=== PATIENT | female | born 1980 | race Caucasian/White ===

== ENCOUNTER 2017-10-11 23:08 | Emergency (ER) | payer OTHER ==
[~2017-10-11] VITALS: Ht 170.2 cm; Wt 53.4 kg
[~2017-10-11 23:08] MED LIST: ASPIRIN81 M2 PO; IBUPROFEN800 MG PO; IRON325 M1 PO; MAKENA250 MG/1 M IM; NAPROSYN500 MG PO; PRENATAL TABLE1 EAC3 PO; SPRINTEC1 EACH PO; TYLENOL EXTRA500 MG PO; VITAMIN D-3 401 EACH PO
[2017-10-12] MEDS ORDERED: MEDROL DOSEPAK4 MG PO (00:09)
[2017-10-12] MEDS ORDERED: ZITHROMAX Z-PA250 MG PO (00:09)
[2017-10-12] MEDS ORDERED: ULTRAM50 MG PO (00:09)
[2017-10-12 00:13] VITALS: BP 118/71
== END 2017-10-12 00:14 | disposition home or self-care (01) ==
LOC: EME 23:08 → RME 23:08
DX: R07.81 Pleurodynia (principal); J06.9 Acute upper respiratory infection, unspecified; J45.909 Unspecified asthma, uncomplicated; Z86.79 Personal history of other diseases of the circulatory system
CPT/HCPCS: 71046; 99281; 99283; J7512

== ENCOUNTER 2017-12-22 16:55 | Emergency (ER) | payer OTHER ==
[~2017-12-22] VITALS: Ht 170.2 cm; Wt 52.8 kg
[~2017-12-22 16:55] MED LIST changes: +MEDROL DOSEPAK4 MG PO; +ULTRAM50 MG PO; +ZITHROMAX Z-PA250 MG PO
[2017-12-22] MEDS ORDERED: ULTRAM50 MG PO (18:48)
[2017-12-22 18:57] VITALS: BP 129/87
== END 2017-12-22 18:57 | disposition home or self-care (01) ==
LOC: EME 16:55
DX: M79.661 Pain in right lower leg (principal); M25.569 Pain in unspecified knee; R20.2 Paresthesia of skin
CPT/HCPCS: 93971; 99281; 99283